=== PATIENT | male | born 1965 | race Two or more races ===

== ENCOUNTER 2021-12-24 18:03 | Emergency (ER) | payer OTHER ==
[~2021-12-24] VITALS: Ht 170.2 cm; Wt 117.9 kg
[2021-12-24 19:53] VITALS: BP 139/73
[2021-12-24] MEDS ORDERED: predniSONE 20 MG TAB PO ONE (22:45)
[2021-12-24] MEDS ORDERED: diphenhdrAMINE HCL 25 MG CAP PO ONE (22:45)
[2021-12-24] MEDS ORDERED: FAMOTIDINE 20 MG TAB PO ONE (22:45)
[2021-12-24] MEDS ORDERED: DIPH25CA66 PO (23:22)
[2021-12-24] MEDS ORDERED: PRED20TA2 PO (23:22)
== END 2021-12-24 23:32 | disposition home or self-care (01) ==
LOC: ER 18:05
DX: L23.9 Allergic contact dermatitis, unspecified cause (principal); E11.9 Type 2 diabetes mellitus without complications; I10 Essential (primary) hypertension
CPT/HCPCS: 99284; J7512